=== PATIENT | female | born 1985 | race Two or more races ===

== ENCOUNTER 2024-05-26 18:54 | Emergency (ER) | payer OTHER, MEDICAID ==
[~2024-05-26] VITALS: Ht 160 cm; Wt 61.3 kg
--- NOTE | 2024-05-26 19:34 | ED.PDOC ---
GI ASSESSMENT HPI Comments A 38 year old female presents to the ED with a chief complaint of nausea/vomiting onset today. states the patient woke up today experiencing abdominal pain with nausea/vomiting. Patient consumed large amount of alcohol last night. Denies any past medical history. No other symptoms or modifying factors present at this time. Patient was vomiting at time of arrival. Chief Complaint: Nausea/Vomiting Time Seen by MD: 19:08 Reviewed Notes: Nurses Notes, Medications, Allergies Allergies: Coded Allergies: No Known Drug Allergy (Verified Allergy, Unknown, 05/26/24) Information Source: Patient, Spouse Mode of Arrival: Ambulatory Timing: Hours Duration: Since onset Prehospital treatment: None Vomitus: Bilious, Food Particles, Soft, Watery Severity: Moderate Recent: Ingestion of ETOH Recent Hx of: Other (ETOH use) Pain Location: Diffuse Associated sign and symptoms: Nausea, Vomiting, Abdominal Pain Past Medical History PAST MEDICAL HISTORY: Denies Surgical History: Denies all surgeries [employer]CH[employer]ICAL OFFICER History: No Pertinent D[employer]CH[employer]ICAL OFFICER History Family History Family History: Reviewed,noncontributory to illness, No family hx of Cancer, No family hx of DM, No family hx of Heart sukhi, No family hx of HTN, No family hx ofKidney sukhi, No family hx of Liver sukhi, No family hx of Lung sukhi, No family hx of Stroke Social History Smoker: Non-Smoker Alcohol: Occasionally Drugs: Denies Drug Use Lives In: Home Constitutional: denies: chills, diaphoresis, fatigue, fever, malaise, sweats, weakness, others EENTM: denies: blurred vision, double vision, ear bleeding, ear discharge, ear drainage, ear pain, ear ringing, eye pain, eye redness, hearing loss, mouth kathy n, mouth swelling, nasal discharge, nose bleeding, nose congestion, nose pain, photophobia, tearing, throat pain, throat swelling, voice changes, others Respiratory: denies: cough, hemoptysis, orthopnea, SOB at rest, shortness of breath, SOB with excertion, stridor, wheezing, others Cardiovascular: denies: chest pain, dizzy spells, diaphoresis, Dyspnea on exertion, edema, irregular heart beat, left arm pain, lightheadedness, palpitations, PND, syncope, others Gastrointestinal: reports: abdominal pain, nausea, vomiting; denies: abdomen distended, blood streaked bowels, constipated, diarrhea, dysphagia, difficulty swallowing, hematemesis, melena, poor appetite, poor fluid intake, rectal bleeding, rectal pain, others Genitourinary: denies: abnormal vagina bleeding, burning, dyspareunia, dysuria, flank pain, frequency, hematuria, incontinence, pain, , vagina discharge, urgency, others Neurological: denies: dizziness, fainting, headache, left sided numbness, left sided weakness, numbness, paresthesia, pre-existing deficit, right sided numbness, right sided weakness, seizure, speech problems, tingling, tremors, weakness, others Musculoskeletal: denies: back pain, gout, joint pain, joint swelling, muscle pain, muscle stiffness, neck pain, others Integumetry: denies: bruises, change in color, change in hair/nails, dryness, laceration, lesions, lumps, rash, wounds, others Allergic/Immunocompromised: denies: Difficulty Healing, Frequent Infections, Hives, Itching, others Hematologic/Lymphatic: denies: anemia, blood clots, easy bleeding, easy bruising, swollen glands, others Endocrine: denies: excessive hunger, excessive sweating, excessive thirst, excessive urination, flushing, intolerance to cold, intolerance to heat, unexplained weight gain, unexplained weight loss, others Psychiatric: denies: anxiety, bipolar disorder, depression, hopeless, panic disorder, schizophrenia, sleepless, suicidal, others All Other Systems: Reviewed and Negative Physical Exam General Appearance: Moderate Distress (Patient appears to be in moderate distress due to vomiting concerns.), Normal HEENT: Normal ENT Inspection, Pharynx Normal, TMs Normal Neck: Full Range of Motion, Non-Tender, Normal, Normal Inspection Respiratory: Chest Non-Tender, Lungs Clear, No Accessory Muscle Use, No Respiratory Distress, Normal Breath Sounds Cardiovascular: No Edema, No JVD, No Murmur, No Gallop, Normal Peripheral Pulses, Regular Rate/Rhythm Breast Exam: Deferred Gastrointestinal: Other (Diffuse epigastric tenderness to palpation extending towards the periumbilical region. No signs of trauma. No pulsatile masses, edema or ecchymosis.) Genitalia: Deferred Pelvic: Deferred Rectal: Deferred Extremities: No calf tenderness, Normal capillary refill, Normal inspection, Normal range of motion, Non-tender, No pedal edema Neurologic: Alert, vp of marketing II-XII nml as Tested, No Motor Deficits, Normal Affect, Normal Mood, No Sensory Deficits Cerebellar Function: Normal Reflexes: Normal Skin: Dry, Normal Color, Warm Lymphatic: No Adenopathy Was a procedure done? Was a procedure done?: No GI differential Dx Differential Diagnosis: Other (ETOH intoxication, UTI, ) X-Ray, Labs, Meds, VS Vital Signs Date Time Temp Pulse Resp B/P (MAP) Pulse Ox O2 Delivery O2 Flow Rate FiO2 05/26/24 19:47 61 18 94/65 (75) 99 05/26/24 19:30 98.1 84 24 97/57 (70) 98 Lab Test 05/26/24 21:33 Range/Units Urine Color Yellow Yellow Urine Clarity Turbid H Clear Urine pH 6.5 5.0-9.0 Urine Specific [place] 1.028 1.001-1.035 Urine Protein 1+ H Negative Urine Ketones 2+ H Negative Urine Blood 2+ H Negative /uL Urine Nitrite 1+ H Negative Urine Bilirubin Negative Negative Urine Urobilinogen Normal Negative mg/dL Urine Leukocyte Esterase Trace Negative /uL Urine RBC 7 0 - 4 /hpf Urine WBC 9 0 - 5 /hpf Urine Squamous Epithelial Cells Mod <5 /hpf Urine Bacteria Few H None Seen /hpf Urine Mucus Few None Seen Urine Glucose Normal Normal mg/dL Urine Test Negative Negative Current Medications Medications (Trade) Dose Ordered Sig/Allan Route Start Time Stop Time Status Last Admin Metoclopramide HCl (Reglan Injection) 10 mg ONCE ONCE IM 05/26/24 19:15 05/26/24 19:54 DC 05/26/24 20:03 Ondansetron HCl (Zofran) 4 mg ONCE ONCE IM 05/26/24 19:15 05/26/24 19:54 DC 05/26/24 20:03 Sodium Chloride 2,000 ml @ 1,000 mls/hr Q2H ONCE IV 05/26/24 19:15 05/26/24 21:14 DC 05/26/24 20:03 X-Ray, Labs, Meds, VS Comment All studies performed the ED were evaluated by me personally. Urine returned an unremarkable result. Patient appears to be suffering from nausea and vomiting due to excessive alcohol use. Advised good hydration and medication as needed. Time of 1ST Reevaluation: 19:38 Reevaluation 1ST: Unchanged Patient Education/Counseling: Diagnosis, Treatment, Prognosis Family Education/Counseling: Diagnosis, Treatment, Prognosis Additional Information I reviewed the following notes from patient's past medical encounters: The following tests were ordered, and results were reviewed by me: COLIN BLANTON Additional Information was gathered from interviewing the following independent historians: I discussed treatment and results with medical personnel and: patient, Departure 1 Departure Time of Disposition: 22:45 Impression: Primary Impression: Alcohol intoxication Disposition: HOME / SELF CARE / HOMELESS Condition: Stable Additional Instructions: Advise utilizing medication as needed as well as good hydration and healthy nutrition for the next few days. e-Prescriptions Acetaminophen (Acetaminophen) 500 Mg Tab 500 MG PO Q4HP PRN, #20 TAB Prov: RACHAEL ALXEIS PAC 05/26/24 Ondansetron Odt 4MG Tab (ZOFRAN PO) 4 Mg Tb 4 MG PO Q6HP PRN, #10 TAB ODT TAB-DISSOLVE IN MOUTH, THEN SWALLOW Prov: RACHAEL ALEXIS PAC 05/26/24 Discharged With: Self, Spouse Critical Care Note Critical Care Time?: No Stability Stability form required: No Heart Score Heart Score: Heart Score Response (Comments) Value History N/A 0 EKG N/A 0 Age N/A 0 Risk Factors N/A 0 Troponin N/A 0 Total 0 I personally scribed for RACHAEL ALEXIS PAC ([email or web address]) on 05/26/24 at 19:34. Electronically submitted by Chitra Fields ([email or web address]). I personally scribed for RACHAEL ALEXIS PAC ([email or web address]) on 05/26/24 at 19:48. Electronically submitted by Chitra Fields ([email or web address]). RACHAEL ALEXIS PAC May 26, 2024 19:34
[2024-05-26 19:47] VITALS: BP 94/65; PULSE 61; RESP 18; O2SAT 99
[2024-05-26] MEDS: ONDANSETRON HCL 4 MG/2 ML VIAL IM ONE (20:03)
[2024-05-26] MEDS: SODIUM CHLORIDE 0.9% 2,000 ML IV ONE (20:03)
[2024-05-26] MEDS: METOCLOPRAMIDE HCL 5MG/ml INJ 2ml VIAL IM ONE (20:03)
[2024-05-26] MEDS: ONDANSETRON HCL 4 MG/2 ML VIAL IV ONE (20:03)
[2024-05-26] MEDS: METOCLOPRAMIDE HCL 5MG/ml INJ 2ml VIAL IV ONE (20:04)
[2024-05-26 22:11] LABS: Urine Bacteria FEW /hpf (None Seen); Urine Blood 2+ /uL (Negative); Urine Clarity Turbid (Clear); Urine Color Yellow (Yellow); Urine Mucus FEW (None Seen); Urine Protein, UAD 1+ (Negative); Urine Specific Gravity 1.028 (1.001-1.035); Urine Urobilinogen Normal (Negative); Urine WBC 9 /hpf (0 - 5); Urine pH 6.5 (5.0-9.0)
[2024-05-26] MEDS ORDERED: ACET500T58 PO (22:46)
[2024-05-26] MEDS ORDERED: ZOFR4T PO (22:46)
== END 2024-05-26 22:47 | disposition home or self-care (01) ==
LOC: ER 18:54
DX: F10.129 Alcohol abuse with intoxication, unspecified (principal); Z32.02 Encounter for pregnancy test, result negative; Y90.0 Blood alcohol level of less than 20 mg/100 ml
CPT/HCPCS: 81001; 81025; 96360; 96372; 99284; J2405; J2765; J7030